=== PATIENT | male | born 1945 | race Caucasian/White ===

== ENCOUNTER 2019-01-25 11:34 | Emergency (ER) | payer OTHER ==
[2019-01-25] MEDS ORDERED: HYDROmorphone 1 MG/ML Syringe IVPUSH ONE ×2 (11:48→12:18)
[2019-01-25] MEDS ORDERED: Ondansetron 4 MG/2 ML SDV IVPUSH ONE (11:48)
[2019-01-25] MEDS ORDERED: Ondansetron 4 MG/2 ML SDV ONE (11:55)
[2019-01-25] MEDS ORDERED: HYDROmorphone 1 MG/ML Syringe ONE (11:55)
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
--- NOTE | 2019-01-25 13:21 | CR ---
[id number] RAD/RAD Tibia Fibula Left EXAM: LEFT TIBIA AND FIBULA 3 VIEWS INDICATION: Trauma. COMPARISON: None. DISCUSSION: Segmental fracture of the mid tibial shaft with up to one shaft width of medial displacement of the mid shaft segment. There is mild comminution of the fracture at both ends of the segment. Minimally comminuted proximal fibula shaft fracture with up to 1 and a half shaft width displacement of the proximal portion of the shaft laterally. A small corticated ossicle adjacent to the fibular head may relate to a remote healed fracture. Partially imaged knee arthroplasty. Prior subtalar joint effusion. 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 Soft tissue swelling throughout the leg. IMPRESSION: 1. Displaced comminuted and segmental fracture of the tibial shaft. 2. Displaced mildly comminuted proximal fibular shaft fracture. Mike Ray MD 01/25/19 [id number] Thank you for allowing us to participate in the care of your patient.
== END 2019-01-25 13:05 ==
LOC: KA.ED 11:34
DX: S82.252B Displaced comminuted fracture of shaft of left tibia, initial encounter for open fracture type I or II (principal); S82.402B Unspecified fracture of shaft of left fibula, initial encounter for open fracture type I or II; Z79.899 Other long term (current) drug therapy; W22.8XXA Striking against or struck by other objects, initial encounter
CPT/HCPCS: 73590; 96374; 96375; 99285; J1170; J2405